=== PATIENT | female | born 1930 | race Caucasian/White ===

== ENCOUNTER 2017-01-19 08:15 | Emergency (ER) | payer MEDICARE, BC ==
[2017-01-19] MEDS ORDERED: Sodium Chloride 0.9% 10 ML Syringe FLUSH PRN (08:52)
[2017-01-19] MEDS ORDERED: Ondansetron 4 MG/2 ML SDV IVPUSH ONE (08:52)
[2017-01-19] MEDS ORDERED: Lactated Ringers 1,000 ML IV SCH (09:00)
--- NOTE | 2017-01-19 09:10 | EDM.PDOC ---
ED HPI GENERAL MEDICAL PROBLEM - General Chief Complaint: Gastrointestinal Problem Stated Complaint: VOMITING PAST FEW DAYS Time Seen by Provider: 01/19/17 08:46 Source of Information: Reports: Patient, Family, Old Records, RN Notes Reviewed History Limitations: Reports: No Limitations - History of Present Illness INITIAL COMMENTS - FREE TEXT/NARRATIVE: 86-year-old female presents emergency department day complaint of nausea and diarrhea, she has had diarrhea for the last 2 weeks on and off it seems to coincide with recent restarting of Namenda. She has been evaluated by neuropsychology who felt she had mild cognitive impairment has also recently been evaluated by neurology for history of TIAs. She she continues to use aspirin, neurology had increased Aricept to 10 mg and then stop the Namenda because the indication of the mild disease and planning on adding the combination if needed for severe disease development. However she was evaluated in clinic by primary care on 13 January and appears to have been restarted on Namenda unfortunately the notes are not available as to reasoning. She denies any other symptomology the diarrhea is intermittent mostly loose watery stools she is the only one that has diarrhea in the household denies fevers shortness of breath chest pain no problems with urination Denies Pain Score (Numeric/FACES): 0 - Related Data Allergies Allergy/AdvReac Type Severity Reaction Status Date / Time No Known Allergies Allergy Verified 01/19/17 08:33 Home Meds: Home Meds Hydrochlorothiazide 25 tab PO DAILY 03/25/16 [History] Losartan [Cozaar] 1 tab PO DAILY 03/25/16 [History] atorvaSTATin [Lipitor] 10 mg PO BEDTIME 03/25/16 [History] diphenhydrAMINE HCl [Benadryl] 25 mg PO TID PRN 03/25/16 [History] Aspirin 325 mg PO DAILY 04/13/16 [History] Potassium Chloride [Klor-Con M20] 20 meq PO DAILY 04/13/16 [History] Clopidogrel [Plavix] 75 mg PO DAILY 04/30/16 [History] amLODIPine [Norvasc] 10 mg PO DAILY 04/30/16 [History] Cyanocobalamin (Vitamin B-12) [B-12] 1,000 mcg PO DAILY 01/19/17 [History] Diphenoxylate HCl/Atropine [Lomotil] 2 tab PO Q6H PRN 01/19/17 [History] Donepezil HCl [Aricept] 10 mg PO BEDTIME 01/19/17 [History] Memantine [Namenda] 5 mg PO BEDTIME 01/19/17 [History] Past Medical History HEENT History: Reports: Impaired Vision Cardiovascular History: Reports: High Cholesterol, Hypertension Respiratory History: Reports: Asthma [employer] History: Reports: Spontaneous Other OB/BYN History: patient unaware of reason for STELLA Musculoskeletal History: Reports: Arthritis Neurological History: Reports: TIA, Other (See Below) (Mild cognitive impairment ) - Infectious Disease History Infectious Disease History: Reports: Chicken Pox, Measles, Mumps - Past Surgical History GI Surgical History: Reports: Cholecystectomy Female Surgical History: Reports: Hysterectomy Social & Family History - Tobacco Use Smoking Status *Q: Never Smoker Second Hand Smoke Exposure: No - Caffeine Use Caffeine Use: Reports: Tea - Recreational Drug Use Recreational Drug Use: No ED ROS GENERAL - Review of Systems Review Of Systems: See Below Constitutional: Reports: No Symptoms HEENT: Reports: No Symptoms Respiratory: Reports: No Symptoms Cardiovascular: Reports: No Symptoms GI/Abdominal: Reports: Diarrhea, Nausea : Reports: No Symptoms Musculoskeletal: Reports: No Symptoms Skin: Reports: No Symptoms Neurological: Reports: No Symptoms ED EXAM, GI/ABD - Physical Exam Exam: See Below Text/Narrative:: General: Female, not in any distress, alert and oriented x3 HEENT: head is atraumatic normocephalic, eyes pupils equal round reactive to light, sclera clear no conjunctivitis appreciated. Ears tympanic membranes clear and gram[place] landmarks and light reflex are present bilaterally canals are clear. Nose no septal deviation, nares are clear, no blood present. Mouth mucosa is moist and pink no erythema or exudate noted in soft palate, tongue is midline uvula is midline, dentition is intact. Neck: Supple no thyromegaly no tracheal deviation. Nodes: Cervical nodes subclavicular nodes nontender no palpable lymphadenopathy noted. Lungs: clear to auscultation bilaterally with symmetrical respirations, no adventitious noise appreciated. CV: Regular rate and rhythm S1 and S2 appreciated no murmurs rubs or gallops noted. Abdomen: Soft, nontender, no palpable masses or organomegaly appreciated, no distention no guarding bowel sounds are present, . Neuro: Cranial nerves II through XII grossly intact Course - Vital Signs Last Recorded V/S: Last Vital Signs Temp 97.5 F 01/19/17 10:45 Pulse 64 01/19/17 10:45 Resp 16 01/19/17 10:45 BP 121/67 01/19/17 10:45 Pulse Ox 93 L 01/19/17 10:45 - Orders/Labs/Meds Orders: Active Orders 24 hr Category Date Time Status Peripheral IV Care [RC] . DIRECTED Care 01/19/17 08:52 Active CULTURE URINE [RM] Urgent Lab 01/19/17 09:59 Received Lactated Ringers [Ringers, Lactated] 1,000 ml Med 01/19/17 09:00 Active IV ASDIRECTED Sodium Chloride 0.9% [Saline Flush] Med 01/19/17 08:52 Active 10 ml FLUSH ASDIRECTED PRN Peripheral IV Insertion Adult [OM.PC] Urgent Oth 01/19/17 08:52 Ordered Medication Orders Lactated Ringer's (Ringers, Lactated) 1,000 mls @ 500 mls/hr IV ASDIRECTED CHANELL Last Admin: 01/19/17 09:12 Dose: 500 mls/hr Sodium Chloride (Saline Flush) 10 ml FLUSH ASDIRECTED PRN PRN Reason: Keep Vein Open Labs: Laboratory Tests 01/19/17 01/19/17 01/19/17 Range/Units 09:03 09:03 09:03 WBC 7.4 (4.5-11.0) K/uL RBC 4.33 (3.30-5.50) M/uL Hgb 13.1 (12.0-15.0) g/dL Hct 37.6 (36.0-48.0) % MCV 87 (80-98) fL MCH 30 (27-31) pg MCHC 35 (32-36) % Plt Count 317 (150-400) K/uL Neut % (Auto) 73 H (36-66) % Lymph % (Auto) 17 L (24-44) % [place] % (Auto) 9 H (2-6) % Eos % (Auto) 1 L (2-4) % Baso % (Auto) 1 (0-1) % Sodium 137 L (140-148) mmol/L Potassium 3.1 L (3.6-5.2) mmol/L Chloride 96 L (100-108) mmol/L Carbon Dioxide 26 (21-32) mmol/L Anion Gap 18.1 H (5.0-14.0) mmol/L BUN 41 H D (7-18) mg/dL Creatinine 1.7 H D (0.6-1.0) mg/dL Est Cr Clr Drug Dosing 17.69 mL/min Estimated GFR (MDRD) 29 L (>60) Glucose 105 (74-106) mg/dL Lactic Acid 1.8 (0.4-2.0) mmol/L Calcium 9.1 (8.5-10.1) mg/dL Total Bilirubin 0.6 (0.2-1.0) mg/dL AST 19 (15-37) U/L ALT 24 (12-78) U/L Alkaline Phosphatase 157 H (46-116) U/L Total Protein 7.3 (6.4-8.2) g/dL Albumin 3.4 (3.4-5.0) g/dL Globulin 3.9 H (2.3-3.5) g/dL Albumin/Globulin Ratio 0.9 L (1.2-2.2) Urine Color Urine Appearance Urine pH (4.5-8.0) Ur Specific [employer] (1.008-1.030) Urine Protein (NEGATIVE) mg/dL Urine Glucose (UA) (NEGATIVE) mg/dL Urine Ketones (NEGATIVE) mg/dL Urine Occult Blood (NEGATIVE) Urine Nitrite (NEGATIVE) Urine Bilirubin (NEGATIVE) Urine Urobilinogen (NORMAL) mg/dL Ur Leukocyte Esterase (NEGATIVE) Urine RBC (0-5) Urine WBC (0-5) Ur Epithelial Cells Amorphous Sediment Urine Bacteria Urine Mucus 01/19/17 Range/Units 09:05 WBC (4.5-11.0) K/uL RBC (3.30-5.50) M/uL Hgb (12.0-15.0) g/dL Hct (36.0-48.0) % MCV (80-98) fL MCH (27-31) pg MCHC (32-36) % Plt Count (150-400) K/uL Neut % (Auto) (36-66) % Lymph % (Auto) (24-44) % [place] % (Auto) (2-6) % Eos % (Auto) (2-4) % Baso % (Auto) (0-1) % Sodium (140-148) mmol/L Potassium (3.6-5.2) mmol/L Chloride (100-108) mmol/L Carbon Dioxide (21-32) mmol/L Anion Gap (5.0-14.0) mmol/L BUN (7-18) mg/dL Creatinine (0.6-1.0) mg/dL Est Cr Clr Drug Dosing mL/min Estimated GFR (MDRD) (>60) Glucose (74-106) mg/dL Lactic Acid (0.4-2.0) mmol/L Calcium (8.5-10.1) mg/dL Total Bilirubin (0.2-1.0) mg/dL AST (15-37) U/L ALT (12-78) U/L Alkaline Phosphatase (46-116) U/L Total Protein (6.4-8.2) g/dL Albumin (3.4-5.0) g/dL Globulin (2.3-3.5) g/dL Albumin/Globulin Ratio (1.2-2.2) Urine Color Yellow Urine Appearance Cloudy Urine pH 5.0 (4.5-8.0) Ur Specific [employer] 1.025 (1.008-1.030) Urine Protein 30 H (NEGATIVE) mg/dL Urine Glucose (UA) Normal (NEGATIVE) mg/dL Urine Ketones 15 H (NEGATIVE) mg/dL Urine Occult Blood Large (NEGATIVE) Urine Nitrite Negative (NEGATIVE) Urine Bilirubin Small (NEGATIVE) Urine Urobilinogen Normal (NORMAL) mg/dL Ur Leukocyte Esterase Large (NEGATIVE) Urine RBC 0-5 (0-5) Urine WBC 10-20 H (0-5) Ur Epithelial Cells Moderate Amorphous Sediment Few Urine Bacteria Moderate Urine Mucus Few Meds: Medications Generic Name Dose Route Start Last Admin Trade Name Freq PRN Reason Stop Dose Admin Lactated Ringer's 1,000 mls @ 500 mls/hr 01/19/17 09:00 01/19/17 09:12 Ringers, Lactated IV 500 mls/hr ASDIRECTED CHANELL Administration Sodium Chloride 10 ml 01/19/17 08:52 Saline Flush FLUSH ASDIRECTED PRN Keep Vein Open Discontinued Medications Generic Name Dose Route Start Last Admin Trade Name Freq PRN Reason Stop Dose Admin Potassium Chloride 20 meq/ 112 mls @ 56 mls/hr 01/19/17 10:45 01/19/17 10:37 Lidocaine HCl 2 ml/ Sodium IV 01/19/17 12:44 56 mls/hr Chloride ONETIME ONE Administration Ondansetron HCl 4 mg 01/19/17 08:52 01/19/17 09:14 Zofran IVPUSH 01/19/17 08:53 4 mg ONETIME ONE Administration Departure - Departure Time of Disposition: 12:52 Disposition: Home, Self-Care 01 Condition: Good Clinical Impression: Diarrhea Urinary tract infection Qualifiers: Urinary tract infection type: acute cystitis Hematuria presence: without hematuria Qualified Code(s): N30.00 - Acute cystitis without hematuria - Discharge Information Forms: ED Department Discharge Additional Instructions: Take full course of antibiotics, recommend stop Namenda, keep your follow-up appointment on Tuesday with your primary care provider - My Orders Last 24 Hours: My Active Orders 01/19/17 08:52 Peripheral IV Care [RC] . DIRECTED Sodium Chloride 0.9% [Saline Flush] 10 ml FLUSH ASDIRECTED PRN Peripheral IV Insertion Adult [OM.PC] Urgent 01/19/17 09:00 Lactated Ringers [Ringers, Lactated] 1,000 ml IV ASDIRECTED 01/19/17 09:59 CULTURE URINE [RM] Urgent - Assessment/Plan Last 24 Hours: My Active Orders 01/19/17 08:52 Peripheral IV Care [RC] . DIRECTED Sodium Chloride 0.9% [Saline Flush] 10 ml FLUSH ASDIRECTED PRN Peripheral IV Insertion Adult [OM.PC] Urgent 01/19/17 09:00 Lactated Ringers [Ringers, Lactated] 1,000 ml IV ASDIRECTED 01/19/17 09:59 CULTURE URINE [RM] Urgent Plan: Assessment Acuity = acute Site and laterality = intravascular volume depletion with urinary tract infection complicated patient with mild cognitive impairment Etiology = secondary diarrhea possibly related to NamendaUrinary tract infection probably related to decreased flow with bacterial cause Manifestations = hypokalemia Location of injury = Home Lab values = CBC within normal limits sodium low at 137 consistent hyponatremia potassium low at 3.1 consistent hypokalemia creatinine elevated at 1.7 consistent with acute renal failure stage GIV, urinalysis reveals 10-20 WBCs consistent with pyuria cultures pending Plan She felt improvement with 1 L of fluids 20 mEq of potassium was able to tolerate a meal had no loose stools or vomiting while in the ED discharge home on Bactrim for 3 days and recommend stopping Namenda Patient was in agreement with the plan all questions were answered, they were instructed to return to the emergency department or call for worsening symptoms. This note was dictated using [employer] voice recognition software please call with any questions.
[2017-01-19] MEDS ORDERED: Potassium Chloride 20 MEQ in Premix Bag 1 BAG IV ONE (10:03)
[2017-01-19] MEDS ORDERED: Potassium Chloride 20 MEQ, Lidocaine 1% 2 ML in Sodium Chloride 0.9% 100 ML IV ONE (10:45)
[2017-01-19 10:46] VITALS: BP 121/67
== END 2017-01-19 13:10 | disposition home or self-care (01) ==
LOC: JP.ED 08:15
DX: N30.00 Acute cystitis without hematuria (principal); R19.7 Diarrhea, unspecified; J45.909 Unspecified asthma, uncomplicated; I10 Essential (primary) hypertension; M19.90 Unspecified osteoarthritis, unspecified site; E78.00 Pure hypercholesterolemia, unspecified; Z90.49 Acquired absence of other specified parts of digestive tract; Z90.710 Acquired absence of both cervix and uterus; Z86.73 Personal history of transient ischemic attack (TIA), and cerebral infarction without residual deficits; Z79.82 Long term (current) use of aspirin; Z79.899 Other long term (current) drug therapy
CPT/HCPCS: 36415; 80053; 81001; 83605; 85025; 87086; 96361; 96374; 99284; J2405; J3480; J7030; J7120; 99283